=== PATIENT | female | born 1950 | race African-American/Black ===

== ENCOUNTER 2017-04-18 08:48 | Emergency (ER) | payer BC, MEDICARE ==
--- NOTE | ~2017-04-18 | CT2 ---
[facility] A Service of [facility] & [facility] RADIOLOGY TEXT RESULTS PATIENT: SIVA LIAO LOCATION: [facility] : 50 UNIT #: [id number] AGE: [address]: Lori Forrest MD SEX: F ORDER DR: [id number] [facility] [address] [place], [place] [address] [id number] E MR#: [id number] Acc #: [id number] NAME: SIVA LIAO : 1950 SEX: F STUDY DATE/TIME: 04/18/2017 13:18 UNIT: [facility] ROOM: STUDY DESCRIPTION: CT Abd and Pelv W Cont Attending Physician: Lori Forrest M.D. Ordering Physician: Lori Forrest M.D. Primary Care Physician: Jordana Gould M.D. MEDICAL IMAGING REPORT This report is preliminary unless electronic signature is present EXAM CT of the abdomen and pelvis with contrast. INDICATIONS Lower abdominal pain for 1 week. This is located on the left side. TECHNIQUE Axial CT images were obtained from the dome of the diaphragm through the symphysis pubis following administration of intravenous contrast material. FINDINGS Images through the lung bases are clear. The stomach and proximal small bowel are within normal limits. The liver appears unremarkable. Patient does appear to have cholelithiasis. Spleen and pancreas are normal, as are the adrenal glands. The right kidney appears normal. I think the patient has some parapelvic cysts on the left. The appendix is visualized and is within normal limits. Calcified uterine fibroids are noted. Urinary bladder appears normal. This patient has colonic diverticulosis. I do not see any convincing evidence of diverticulitis on today's examination. No aggressive osseous abnormalities are seen. Patient does have a compression deformity at T11 and T10 that was probably also present in March 2015. IMPRESSION 1. Cholelithiasis without evidence of acute cholecystitis. 2. Colonic diverticulosis without evidence of diverticulitis. 3. Please see the body of the report for any other additional incidental findings. Dictated by... Deisi Arellano M.D. [facility] A Service of [facility] & [facility] RADIOLOGY TEXT RESULTS PATIENT: SIVA LIAO LOCATION: [facility] : 50 UNIT #: [id number] AGE: [address]: Lori Forrest MD SEX: F ORDER DR: THIS IS AN ELECTRONICALLY VERIFIED REPORT Deisi Arellano M.D. at 04/20/2017 5:14 PM AFF/js TD: 04/18/2017 19:10 JOB #: [id number] MEDICAL IMAGING REPORT Page 1 of 1 COPY
[~2017-04-18 08:48] MED LIST: BAYER ASPIRIN325 M1 PO; DILAUDID2 MG PO; PERCOCET 10/3251 TAB PO; PHENERGAN12.5 MG PO; TARKA 4-240 MG1 EACH PO; TARKA PO; TYLENOL325 M1 PO; VESICARE PO; [UNRECOGNIZED DRUG - OTHER] PO
[2017-04-18 09:41] LABS: BASOPHIL% 0.6 % (0-2.5); EOSINOPHIL# 0.1 X10e3 (0-0.7); HEMATOCRIT 40.9 % (35.0-45.0); HEMOGLOBIN 13.3 gm/dL (12.0-16.0); LYMPHOCYTE# 1.5 X10e3 (1.0-3.5); LYMPHOCYTE% 21.7 % (17.0-45.0); MEAN CELL VOLUME 91.3 FL (83-96); MEAN CORPUSCULAR HEMOGLOBIN 29.7 PG (28-34); MEAN CORPUSCULAR HGB CONC 32.5 g/dL (30-36); MEAN PLATELET VOLUME 10.2 FL (6.5-11.5); MONOCYTE# 0.6 X10e3 (0-1.0); MONOCYTE% 8.2 % (3.0-12.0); NEUTROPHIL# 4.6 X10e3 (1.5-7.1); NEUTROPHIL% 68.5 % (40-75); PLATELET COUNT 179 X10e3 (140-420); RED BLOOD COUNT 4.48 X10e (3.90-5.30); RED CELL DISTRIBUTION WIDTH 12.6 % (11.0-15.5); WHITE BLOOD COUNT 6.7 X10e3 (4.0-10.5)
[2017-04-18 09:49] LABS: DIFF IND NO
[2017-04-18 10:09] LABS: ALBUMIN SERUM 3.9 g/dL (3.5-5.0); BILIRUBIN, DIRECT 0.1 mg/dL (0.0-0.2); BILIRUBIN,INDIRECT 0.5 mg/dL (0.0-0.9); BILIRUBIN,TOTAL 0.6 mg/dL (0.2-2.0); CALCIUM SERUM 9.4 mg/dL (8.4-10.2); POTASSIUM 3.4 mmol/L (3.5-5.1); PROTEIN TOTAL SERUM 7.2 g/dL (6.0-8.3)
[2017-04-18 11:12] LABS: URINE SOURCE CLEAN CATCH
[2017-04-18 12:27] LABS: URINE APPEARANCE CLEAR; URINE BILIRUBIN NEG (NEG); URINE BLOOD NEG (NEG); URINE COLOR YELLOW; URINE GLUCOSE NEG (NEG); URINE KETONE NEG (NEG); URINE LEUKOCYTE ESTERASE 1+ (NEG); URINE NITRATE NEG (NEG); URINE PROTEIN NEG (NEG); URINE SPECIFIC GRAVITY 1.018 (1.003-1.035)
[2017-04-18 12:29] LABS: URBCS1 AUWI 0-2 /[HPF] (0-2); URINE BACTERIA AUWI NEG (NEGATIVE); URINE SQUAMOUS EPITHELIAL CELL OCC /[HPF]; UWBCS1 AUWI 0-2 (0-5)
[2017-04-18 12:43] LABS: CULTURE INDICATED? NO
== END 2017-04-18 15:10 | disposition home or self-care (01) ==
LOC: CED 08:48
DX: R10.32 Left lower quadrant pain (principal); I10 Essential (primary) hypertension; F17.200 Nicotine dependence, unspecified, uncomplicated; Z88.2 Allergy status to sulfonamides
CPT/HCPCS: 36415; 74177; 80048; 80076; 81003; 83690; 85025; 96374; 99284; J1885; Q9967